=== PATIENT | male | born 1980 | race Caucasian/White ===

== ENCOUNTER 2017-05-28 22:53 | Emergency (ER) | payer OTHER ==
[~2017-05-28] VITALS: Ht 170.2 cm; Wt 81.7 kg
--- NOTE | ~2017-05-28 | EKG ---
[facility] [place] [address] ELECTROCARDIOGRAM REPORT Name: JOSUE SKINNER 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 05/29/17 0829 230 Braeden Carter MD, FACC /EPI
[~2017-05-28 22:53] MED LIST: ABILIFY10 MG; METFORMIN HCL500 MG PO; PROZAC10 MG; TRAZODONE 150150 M1
[2017-05-28] MEDS ORDERED: PROZAC10 MG PO (23:04)
[2017-05-28 23:07] LABS: HEMATOCRIT 32.7 % (42.0-52.0); HEMOGLOBIN 11.4 gm/dL (14.0-18.0); MCV 99.9 fL (80.0-100.0); RBC 3.27 mil/uL (4.50-6.00); RDW 14.2 % (10.5-14.5); WBC 6.8 thou/uL (4.0-11.0)
[2017-05-28 23:16] LABS: URINE BILIRUBIN NEGATIVE (Negative); URINE BLOOD NEGATIVE (Negative); URINE COLOR YELLOW; URINE GLUCOSE-RANDOM* NEGATIVE (Negative); URINE KETONES NEGATIVE (Negative); URINE LEUKOCYTES-REFLEX NEGATIVE (Negative); URINE PROTEIN (DIPSTICK) NEGATIVE (Negative); URINE SPECIFIC GRAVITY >= 1.030 (1.003-1.035); URINE UROBILINOGEN 0.2 E.U./dl (0.2-1.0)
[2017-05-28 23:20] LABS: ANION GAP 10 mmol/L (7-16); BUN 17 mg/dL (7-18); CALCIUM 8.3 mg/dL (8.5-10.1); CHLORIDE 108 mmol/L (98-107); CO2 26 mmol/L (21-32); CREATININE 0.9 mg/dL (0.7-1.3); GLUCOSE 142 mg/dL (74-106); POTASSIUM 3.8 mmol/L (3.5-5.1); SODIUM 144 mmol/L (136-145)
[2017-05-28 23:25] LABS: AMP/METHAMP Negative (Negative); BARBITURATES Negative (Negative); BENZODIAZEPINES Negative (Negative); COCAINE Negative (Negative); METHADONE Negative (Negative); OPIATES Negative (Negative); PCP Negative (Negative); THC POSITIVE (Negative)
[2017-05-28 23:25] LABS: SALICYLATE < 2.8 mg/dL (2.8-20.0); TROPONIN-I < 0.04 ng/mL (<0.04-0.07)
[2017-05-29 09:13] VITALS: BP 116/66
== END 2017-05-29 09:23 | disposition home or self-care (01) ==
LOC: ER 22:53
PROVIDERS: Emergency Medicine
DX: R45.851 Suicidal ideations (principal); E11.9 Type 2 diabetes mellitus without complications; Z86.59 Personal history of other mental and behavioral disorders; F17.210 Nicotine dependence, cigarettes, uncomplicated; F10.99 Alcohol use, unspecified with unspecified alcohol-induced disorder; Z88.0 Allergy status to penicillin

== ENCOUNTER 2017-06-04 23:10 | Emergency (ER) | payer OTHER ==
[~2017-06-04] VITALS: Ht 170.2 cm; Wt 81.7 kg
--- NOTE | ~2017-06-04 | EKG ---
[place] [address] [address] [place] [address] ELECTROCARDIOGRAM REPORT Name: JOSUE SKINNER [facility] [id number] Admission: 06/04/17 Attend Phys: Discharge: 06/05/17 Date of : 84 Report #: [id number] THIS REPORT FOR: //name// [facility] ED Test Date: 2017-06-04 Test Time: 23:26:54 Pat Name: JOSUE SKINNER Department: Room: Gender: M Shorer: [id number] : 1980 Requested By: Zayra Ryan Order Number: [id number] MD: Braeden Carter Measurements Intervals [place] Rate: 89 P: 23 SC: 136 QRS: 12 QRSD: 114 T: 23 QT: 371 QTc: 452 Interpretive Statements Sinus rhythm RSR' in V1 or V2, probably normal variant Compared to ECG 05/28/2017 23:02:37 No significant changes Electronically Signed On 06-05-2017 8:50:59 CDT by Braeden Carter [email or web address] <ELECTRONICALLY SIGNED> By: Braeden Carter MD, [facility] 06/05/17 0850 25 25 Braeden Carter MD, [facility] /EPI
[~2017-06-04 23:10] MED LIST changes: +PROZAC10 MG PO
[2017-06-04 23:27] LABS: BASOPHILS 0.8 % (0.0-2.0); EOSINOPHILS 3.5 % (0.0-3.0); HEMOGLOBIN 11.4 gm/dL (14.0-18.0); LYMPHOCYTES 28.9 % (24.0-44.0); MCH 35.4 pg (26.0-34.0); MCHC 35.6 g/dL (28.0-37.0); MCV 99.2 fL (80.0-100.0); MONOCYTES 9.6 % (1.0-8.0); PLATELET COUNT 139 thou/uL (150-400); POLYS 57.2 % (36.0-66.0); RBC 3.22 mil/uL (4.50-6.00); RDW 13.6 % (10.5-14.5); WBC 8.8 thou/uL (4.0-11.0)
[2017-06-04 23:31] LABS: ANION GAP 10 mmol/L (7-16); BUN 18 mg/dL (7-18); CALCIUM 8.2 mg/dL (8.5-10.1); CHLORIDE 104 mmol/L (98-107); CO2 26 mmol/L (21-32); CREATININE 0.7 mg/dL (0.7-1.3); GLUCOSE 72 mg/dL (74-106); POTASSIUM 3.6 mmol/L (3.5-5.1); SODIUM 140 mmol/L (136-145)
[2017-06-04 23:38] LABS: MANUAL DIFF NO
[2017-06-04 23:40] LABS: ALBUMIN 3.6 g/dL (3.4-5.0); ALKALINE PHOSPHATASE 79 U/L (46-116); DIRECT BILIRUBIN 0.1 mg/dL (<0.1-0.3); SGOT 49 U/L (15-37); SGPT 69 U/L (30-65); TOTAL BILIRUBIN 0.4 mg/dL (<0.1-1.0); TOTAL PROTEIN 6.8 g/dL (6.4-8.2); TROPONIN-I < 0.04 ng/mL (<0.04-0.07)
[2017-06-05] MEDS ORDERED: PHENERGAN 25 MG25 M1 PO (00:10)
[2017-06-05] MEDS ORDERED: ZOFRAN ODT4 MG PO (00:10)
[2017-06-05 00:20] LABS: LARGE PLATELETS OCCASIONAL
[2017-06-05 04:22] VITALS: BP 124/73
== END 2017-06-05 04:24 | disposition home or self-care (01) ==
LOC: ER 23:10
PROVIDERS: Emergency Medicine
DX: F10.129 Alcohol abuse with intoxication, unspecified (principal); K21.9 Gastro-esophageal reflux disease without esophagitis; E11.9 Type 2 diabetes mellitus without complications; F32.9 Major depressive disorder, single episode, unspecified; F17.210 Nicotine dependence, cigarettes, uncomplicated; F15.10 Other stimulant abuse, uncomplicated; Z86.19 Personal history of other infectious and parasitic diseases; Z88.0 Allergy status to penicillin

== ENCOUNTER 2018-04-30 21:15 | Emergency (ER) | payer OTHER ==
[~2018-04-30] VITALS: Ht 170.2 cm; Wt 86.2 kg
[~2018-04-30 21:15] MED LIST changes: +PHENERGAN 25 MG25 M1 PO; +ZOFRAN ODT4 MG PO
[2018-04-30] MEDS ORDERED: METFORMIN HCL500 MG PO (21:24)
[2018-04-30] MEDS ORDERED: IBUPROFEN 600600 M1 PO (21:25)
[2018-04-30] MEDS ORDERED: CYMBALTA20 MG PO (21:25)
[2018-04-30 22:06] LABS: URINE BILIRUBIN NEGATIVE (Negative); URINE BLOOD NEGATIVE (Negative); URINE CLARITY CLEAR; URINE COLOR YELLOW; URINE GLUCOSE-RANDOM* NEGATIVE (Negative); URINE KETONES NEGATIVE (Negative); URINE LEUKOCYTES NEGATIVE (Negative); URINE NITRITE NEGATIVE (Negative); URINE PROTEIN (DIPSTICK) NEGATIVE (Negative); URINE SPECIFIC GRAVITY 1.025 (1.005-1.035); URINE UROBILINOGEN 0.2 E.U./dl (0.2-1.0)
[2018-04-30 22:14] LABS: AMP/METHAMP POSITIVE (Negative); BARBITURATES Negative (Negative); BENZODIAZEPINES Negative (Negative); COCAINE Negative (Negative); METHADONE Negative (Negative); OPIATES Negative (Negative); PCP Negative (Negative)
[2018-04-30 22:39] LABS: HEMATOCRIT 32.1 % (42.0-52.0); HEMOGLOBIN 11.4 gm/dL (14.0-18.0); MCH 34.1 pg (26.0-34.0); MCHC 35.4 g/dL (28.0-37.0); MCV 96.2 fL (80.0-100.0); PLATELET COUNT 108 thou/uL (150-400); RBC 3.34 mil/uL (4.50-6.00); WBC 7.2 thou/uL (4.0-11.0)
[2018-04-30 22:47] LABS: ANION GAP 8 mmol/L (7-16); BUN 23 mg/dL (7-18); CALCIUM 7.6 mg/dL (8.5-10.1); CHLORIDE 108 mmol/L (98-107); CO2 27 mmol/L (21-32); CREATININE 0.9 mg/dL (0.7-1.3); GLUCOSE 109 mg/dL (74-106); POTASSIUM 3.5 mmol/L (3.5-5.1); SODIUM 143 mmol/L (136-145)
[2018-04-30 22:52] LABS: ALBUMIN 3.5 g/dL (3.4-5.0); DIRECT BILIRUBIN 0.1 mg/dL (<0.1-0.3); SGOT 133 U/L (15-37); SGPT 112 U/L (30-65); TOTAL BILIRUBIN 0.4 mg/dL (<0.1-1.0); TOTAL PROTEIN 6.6 g/dL (6.4-8.2)
[2018-04-30 23:02] LABS: SALICYLATE < 2.8 mg/dL (2.8-20.0)
[2018-04-30 23:31] LABS: ABSOLUTE NEUTROPHILS 4.2 thou/uL (1.4-8.2)
[2018-05-01 01:27] VITALS: BP 108/66
== END 2018-05-01 02:25 | disposition home or self-care (01) ==
LOC: ER 21:15
PROVIDERS: Physician Assistant
DX: R45.851 Suicidal ideations (principal); F17.210 Nicotine dependence, cigarettes, uncomplicated; E11.9 Type 2 diabetes mellitus without complications; F32.9 Major depressive disorder, single episode, unspecified; Z88.0 Allergy status to penicillin

== ENCOUNTER 2018-08-16 00:11 | Emergency (ER) | payer OTHER ==
[~2018-08-16] VITALS: Ht 170.2 cm; Wt 79.4 kg
[~2018-08-16 00:11] MED LIST changes: +CYMBALTA20 MG PO; +IBUPROFEN 600600 M1 PO
[2018-08-16 00:37] LABS: URINE BILIRUBIN NEGATIVE (Negative); URINE BLOOD NEGATIVE (Negative); URINE CLARITY CLEAR; URINE COLOR YELLOW; URINE GLUCOSE-RANDOM* NEGATIVE (Negative); URINE KETONES NEGATIVE (Negative); URINE LEUKOCYTES-REFLEX NEGATIVE (Negative); URINE NITRITE-REFLEX NEGATIVE (Negative); URINE PROTEIN (DIPSTICK) NEGATIVE (Negative); URINE SPECIFIC GRAVITY >= 1.030 (1.005-1.035); URINE UROBILINOGEN 0.2 E.U./dl (0.2-1.0)
[2018-08-16 00:45] LABS: AMP/METHAMP POSITIVE (Negative); BARBITURATES Negative (Negative); BENZODIAZEPINES Negative (Negative); COCAINE Negative (Negative); METHADONE Negative (Negative); OPIATES Negative (Negative); PCP Negative (Negative)
[2018-08-16 00:50] LABS: HEMATOCRIT 36.2 % (42.0-52.0); HEMOGLOBIN 12.4 gm/dL (14.0-18.0); MCH 32.3 pg (26.0-34.0); MCHC 34.2 g/dL (28.0-37.0); MCV 94.5 fL (80.0-100.0); RBC 3.83 mil/uL (4.50-6.00); RDW 14.4 % (10.5-14.5); WBC 6.9 thou/uL (4.0-11.0)
[2018-08-16 01:00] LABS: ANION GAP 9 mmol/L (7-16); BUN 16 mg/dL (7-18); CALCIUM 8.7 mg/dL (8.5-10.1); CHLORIDE 104 mmol/L (98-107); CO2 27 mmol/L (21-32); GLUCOSE 107 mg/dL (74-106); POTASSIUM 3.6 mmol/L (3.5-5.1); SALICYLATE < 2.8 mg/dL (2.8-20.0); SODIUM 140 mmol/L (136-145)
== END 2018-08-16 03:06 | disposition home or self-care (01) ==
LOC: ER 00:11
PROVIDERS: Emergency Medicine
DX: R45.851 Suicidal ideations (principal); E11.9 Type 2 diabetes mellitus without complications; F32.9 Major depressive disorder, single episode, unspecified

== ENCOUNTER 2018-12-10 00:54 | Emergency (ER) | payer OTHER ==
[~2018-12-10] VITALS: Ht 167.6 cm; Wt 88.5 kg
[2018-12-10] MEDS ORDERED: ZPAK PO (01:33)
[2018-12-10] MEDS ORDERED: VENTOLIN HFA 1818 GM INH (01:33)
[2018-12-10 02:22] VITALS: BP 143/80
== END 2018-12-10 02:22 | disposition home or self-care (01) ==
LOC: ER 00:54
DX: J45.909 Unspecified asthma, uncomplicated (principal); J06.9 Acute upper respiratory infection, unspecified; E11.9 Type 2 diabetes mellitus without complications; F32.9 Major depressive disorder, single episode, unspecified; F17.210 Nicotine dependence, cigarettes, uncomplicated; Z86.19 Personal history of other infectious and parasitic diseases; Z88.0 Allergy status to penicillin; Z59.0 Homelessness

== ENCOUNTER 2019-02-05 02:29 | Emergency (ER) | payer OTHER ==
[~2019-02-05] VITALS: Ht 172.7 cm; Wt 90.7 kg
[~2019-02-05 02:29] MED LIST changes: +VENTOLIN HFA 1818 GM INH; +ZPAK PO
[2019-02-05 02:30] VITALS: BP 145/90
--- NOTE | 2019-02-05 07:25 | EKG ---
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1980 Requested By: Michelle Bradley Order Number: [id number] MD: Braeden Carter Measurements Intervals [place] Rate: 66 P: 12 MS: 131 QRS: 38 QRSD: 114 T: 31 QT: 418 QTc: 438 Interpretive Statements Sinus rhythm Incomplete right bundle branch block Compared to ECG 06/04/2017 23:26:54 No significant change was found Electronically Signed On 02-05-2019 7:24:53 CDT by Breaden Carter [email or web address] ��������������������������������������������� <ELECTRONICALLY SIGNED> ���������������������������������������� By: Braeden Carter MD, [facility] ��������������������������������������������� 02/05/19 0724 0306 5 Braeden Carter MD, FACC /EPI
== END 2019-02-05 03:37 | disposition home or self-care (01) ==
LOC: ER 02:29
DX: T69.022A Immersion foot, left foot, initial encounter (principal); F17.210 Nicotine dependence, cigarettes, uncomplicated; E11.9 Type 2 diabetes mellitus without complications; F32.9 Major depressive disorder, single episode, unspecified; Z88.0 Allergy status to penicillin

== ENCOUNTER 2019-03-16 05:32 | Emergency (ER) | payer OTHER ==
[~2019-03-16] VITALS: Ht 170.2 cm; Wt 83.0 kg
[2019-03-16 06:40] VITALS: BP 132/70
== END 2019-03-16 06:40 | disposition home or self-care (01) ==
LOC: ER 05:32
DX: B19.20 Unspecified viral hepatitis C without hepatic coma (principal); F10.10 Alcohol abuse, uncomplicated; F15.10 Other stimulant abuse, uncomplicated; R53.83 Other fatigue; E11.9 Type 2 diabetes mellitus without complications; F32.9 Major depressive disorder, single episode, unspecified; F17.210 Nicotine dependence, cigarettes, uncomplicated; Z88.0 Allergy status to penicillin

== ENCOUNTER 2020-06-13 22:44 | Emergency (ER) | payer OTHER ==
[~2020-06-13] VITALS: Ht 170.2 cm; Wt 83.9 kg
[2020-06-14 01:57] VITALS: BP 126/74
== END 2020-06-14 01:57 | disposition short-term general hospital (02) ==
LOC: ER 22:44
DX: R45.851 Suicidal ideations (principal); F15.10 Other stimulant abuse, uncomplicated; E11.9 Type 2 diabetes mellitus without complications; F32.9 Major depressive disorder, single episode, unspecified; F17.210 Nicotine dependence, cigarettes, uncomplicated; Z59.0 Homelessness; Z88.0 Allergy status to penicillin

== ENCOUNTER 2021-04-11 10:19 | Emergency (ER) | payer OTHER ==
[~2021-04-11] VITALS: Ht 170.2 cm; Wt 83.9 kg
[2021-04-11 10:38] LABS: ABSOLUTE NEUTROPHILS 2.9 thou/uL (1.4-8.2); BASOPHILS 0.4 % (0.0-2.0); HEMOGLOBIN 12.1 gm/dL (14.0-18.0); LYMPHOCYTES 34.6 % (24.0-44.0); MCH 32.2 pg (26.0-34.0); MCHC 33.7 g/dL (28.0-37.0); MCV 95.6 fL (80.0-100.0); MONOCYTES 9.3 % (1.0-8.0); PLATELET COUNT 132 thou/uL (150-400); POLYS 52.7 % (36.0-66.0); RBC 3.76 mil/uL (4.50-6.00); RDW 13.7 % (10.5-14.5); WBC 5.5 thou/uL (4.0-11.0)
[2021-04-11 10:46] LABS: ANION GAP 8 mmol/L (7-16); BUN 14 mg/dL (7-18); CHLORIDE 106 mmol/L (98-107); CO2 27 mmol/L (21-32); GLUCOSE 135 mg/dL (74-106); POTASSIUM 3.5 mmol/L (3.5-5.1); SODIUM 141 mmol/L (136-145)
[2021-04-11 10:54] LABS: ALBUMIN 3.4 g/dL (3.4-5.0); SGOT 19 U/L (15-37); SGPT 22 U/L (16-63); TOTAL BILIRUBIN 0.2 mg/dL (0.2-1.0); TOTAL PROTEIN 6.6 g/dL (6.4-8.2); TROPONIN-I <0.06 ng/mL (<0.06)
[2021-04-11 12:19] VITALS: BP 145/79
--- NOTE | 2021-04-11 15:07 | EKG ---
[place] [address] [facility] [place] [address] ELECTROCARDIOGRAM REPORT Name: JOSUE SKINNER RUDY Room #: 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 : 1980 Requested By: Jen Crenshaw Order Number: [id number] MD: Iron Munoz Measurements Intervals [place] Rate: 83 P: 36 [place]: 135 QRS: 44 QRSD: 112 T: 34 QT: 385 QTc: 453 Interpretive Statements Sinus rhythm Borderline intraventricular conduction delay RSR' in V1 or V2, right VCD or RVH Compared to ECG 02/05/2019 03:06:46 Right ventricular hypertrophy now present RSR' in V1 or V2 now present Incomplete right bundle-branch block no longer present Electronically Signed On 04-11-2021 15:06:49 CDT by Iron Munoz [email or web address] <ELECTRONICALLY SIGNED> By: Iron Munoz MD, [facility] 04/11/21 1506 1023 1023 Iron Munoz MD, [facility] /EPI
== END 2021-04-11 12:19 ==
LOC: ER 10:19
PROVIDERS: Student in an Organized Health Care Education/Training Program
DX: R07.89 Other chest pain (principal); R06.02 Shortness of breath; R53.1 Weakness; E11.9 Type 2 diabetes mellitus without complications; R45.851 Suicidal ideations; F32.9 Major depressive disorder, single episode, unspecified; F17.210 Nicotine dependence, cigarettes, uncomplicated; Z88.0 Allergy status to penicillin